=== PATIENT | male | born 1970 | race Two or more races ===

== ENCOUNTER 2017-06-12 03:03 | Emergency (ER) | payer OTHER ==
[2017-06-12] MEDS ORDERED: Aspirin Low Dose CHEW TAB* 81 MG PO ONE (03:04)
[2017-06-12] MEDS ORDERED: Aspirin EC TAB* 325 MG PO ONE (03:26)
[2017-06-12] MEDS ORDERED: Morphine INJ* 4 MG/ML 1 ML SYRINGE IV ONE (03:27)
[2017-06-12] MEDS ORDERED: Pantoprazole IV* 40 MG IV ONE (03:27)
[2017-06-12] MEDS ORDERED: LORazepam INJ* 2 MG/ML 1 ML VIAL IV PUSH ONE (03:27)
[2017-06-12 03:34] LABS: Hematocrit 45 % (42-52); Hemoglobin 14.1 g/dl (14.0-18.0); Mean Corpuscular HGB Conc 31 g/dl (31-36); Mean Corpuscular Hemoglobin 20 pg (27-31); Mean Platelet Volume 9 um3 (7.4-10.4); Red Blood Count 6.91 10^6/ul (4.0-5.4); Red Cell Distribution Width 16 % (10.5-15); White Blood Count 8.4 10^3/ul (3.5-10.8)
[2017-06-12 03:36] LABS: Comments Flag Yes
[2017-06-12 03:37] LABS: Mean Corpuscular Volume 65 fL (80-94)
[2017-06-12 03:40] LABS: Albumin 4.5 g/dL (3.2-5.2); BUN/Creatinine Ratio 10.1 (8-20); Calcium 9.6 mg/dL (8.6-10.3); EGFR African American 77.8 (>60); EGFR Non-African American 60.5 (>60); Globulin 3.3 g/dL (2-4); Potassium 3.4 mmol/L (3.5-5.0); Total Bilirubin 0.4 mg/dL (0.2-1.0); Total Protein 7.8 g/dL (6.4-8.9)
--- NOTE | 2017-06-12 04:47 | ED ---
Shankar Devries Alfonso, scribed for Miriam Shearer MD on 06/12/17 at 0334 . 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 He reports the pain radiates to his jaw. He denies pain radiation to his back. Pt rates the pain 7/10 in severity. Symptoms aggravated by deep breath and alleviated by nothing. Pt reports palpations, and SOB. Pt denies recent travels. PMHx of HTN and HLD. Tobacco abuse disorder. - History of Current Complaint Chief Complaint: EDChestPainROMI Time Seen by Provider: 06/12/17 03:04 Hx Obtained From: Patient Onset/Duration: Started Minutes Ago - 20, Still Present Timing: Constant Initial Severity: Moderate Current Severity: Moderate Pain Intensity: 7 Pain Scale Used: 0-10 Numeric Chest Pain Location: Left Anterior, Left Lateral Chest Pain Radiates: Yes Chest Pain Radiates To:: Jaw Character: Sharp/Stabbing Aggravating Factor(s): Deep Breaths Alleviating Factor(s): Nothing Associated Signs and Symptoms: Positive: Other: - Pt reports palpations, and SOB - Allergy/Home Medications Allergies/Adverse Reactions: Allergies Allergy/AdvReac Type Severity Reaction Status Date / Time No Known Allergies Allergy Verified 08/20/15 18:39 Home Medications: Home Medications Atorvastatin* [Lipitor*] 20 mg PO 1700 06/12/17 [History Confirmed 06/12/17] Diclofenac Sodium EC TAB* [Voltaren EC TAB*] 50 mg PO TID PRN 06/12/17 [History Confirmed 06/12/17] Isoniazid TAB* 300 mg PO DAILY 06/12/17 [History Confirmed 06/12/17] Lisinopril TAB* [Prinivil TAB*] 10 mg PO DAILY 06/12/17 [History Confirmed 06/12] Omeprazole CAP* [Prilosec CAP* 20 MG] 20 mg PO DAILY 06/12/17 [History Confirmed 06/12/17] buPROPion SR TAB* [Wellbutrin SR TAB*] 150 mg PO BID 06/12/17 [History Confirmed 06/12/17] PMH/Surg Hx/FS Hx/Imm Hx Cardiovascular History: Reports: Hx Hypercholesterolemia, Hx Hypertension Sensory History: Denies: Hx Deafness Opthamlomology History: Denies: Hx Legally Blind Infectious Disease History: No Infectious Disease History: Denies: Traveled Outside the [place] in Last 30 Days - Family History Known Family History: Negative: Cardiac Disease - Social History Lives: With Family Alcohol Use: None Substance Use Type: Reports: None Smoking Status (MU): Heavy Every Day Tobacco Smoker Review of Systems Positive: Palpitations, Chest Pain - sharp left-sided pain that radiates to his jaw. Positive: Shortness Of Breath All Other Systems Reviewed And Are Negative: Yes Physical Exam Triage Information Reviewed: Yes Vital Signs On Initial Exam: Initial Vitals Temp Pulse Resp BP Pulse Ox 98.4 F 88 22 155/94 100 06/12/17 03:10 06/12/17 03:10 06/12/17 03:10 06/12/17 03:10 06/12/17 03:10 Vital Signs Reviewed: Yes Appearance: Positive: Well-Appearing, Pain Distress - Mild Skin: Positive: Warm, Skin Color Reflects Adequate Perfusion, Dry Eyes: Positive: EOMI, WILLIE ENT: Positive: Pharynx normal, TMs normal Neck: Positive: Supple, Nontender Respiratory/Lung Sounds: Positive: Clear to Auscultation, Breath Sounds Present. Negative: Rales, Rhonchi, Wheezes Cardiovascular: Positive: RRR, Other - No gallop. Negative: Murmur, Rub Abdomen Description: Positive: Nontender, Soft, Other: - No rebound. Negative: Distended, Guarding Bowel Sounds: Positive: Present Musculoskeletal: Positive: Strength/ROM Intact, Other - No edema Neurological: Positive: Sensory/Motor Intact, Alert, Oriented to Person Place, Time, CN Intact II-III - 2-12 Psychiatric: Positive: Affect/Mood Appropriate - Jemma Coma Scale Coma Scale Total: 15 Diagnostics - Vital Signs Vital Signs Temp Pulse Resp BP Pulse Ox 06/12/17 03:10 98.4 F 88 22 155/94 100 - Laboratory Lab Results: Lab Results 06/12/17 06/12/17 06/12/17 Range/Units 03:16 03:16 03:16 WBC 8.4 (3.5-10.8) 10^3/ul RBC 6.91 H (4.0-5.4) 10^6/ul Hgb 14.1 (14.0-18.0) g/dl Hct 45 (42-52) % MCV 65 L (80-94) fL MCH 20 L (27-31) pg MCHC 31 (31-36) g/dl RDW 16 H (10.5-15) % Plt Count 216 (150-450) 10^3/ul MPV 9 (7.4-10.4) um3 Neut % (Auto) 63.1 (38-83) % Lymph % (Auto) 28.2 (25-47) % Galax % (Auto) 7.8 (1-9) % Eos % (Auto) 0.1 (0-6) % Baso % (Auto) 0.8 (0-2) % Absolute Neuts (auto) 5.3 (1.5-7.7) 10^3/ul Absolute Lymphs (auto) 2.4 (1.0-4.8) 10^3/ul Absolute Monos (auto) 0.7 (0-0.8) 10^3/ul Absolute Eos (auto) 0 (0-0.6) 10^3/ul Absolute Basos (auto) 0.1 (0-0.2) 10^3/ul Absolute Nucleated RBC 0.01 10^3/ul Nucleated RBC % 0.1 Sodium 134 (133-145) mmol/L Potassium 3.4 L (3.5-5.0) mmol/L Chloride 102 (101-111) mmol/L Carbon Dioxide 23 (22-32) mmol/L Anion Gap 9 (2-11) mmol/L BUN 13 (6-24) mg/dL Creatinine 1.29 H (0.67-1.17) mg/dL Est GFR ( Amer) 77.8 (>60) Est GFR (Non-Af Amer) 60.5 (>60) BUN/Creatinine Ratio 10.1 (8-20) Glucose 126 H (70-100) mg/dL Lactic Acid 2.0 (0.5-2.0) mmol/L Calcium 9.6 (8.6-10.3) mg/dL Total Bilirubin 0.40 (0.2-1.0) mg/dL AST 16 (13-39) U/L ALT 14 (7-52) U/L Alkaline Phosphatase 90 (34-104) U/L Troponin I 0.00 (<0.04) ng/mL Total Protein 7.8 (6.4-8.9) g/dL Albumin 4.5 (3.2-5.2) g/dL Globulin 3.3 (2-4) g/dL Albumin/Globulin Ratio 1.4 (1-3) Result Diagrams: 06/12/17 03:16 06/12/17 03:16 Lab Statement: Any lab studies that have been ordered have been reviewed, and results considered in the medical decision making process. - Radiology CXR Radiology Interpretation Completed By: Radiologist - NAD - EKG 0311 Cardiac Rate: NL - BPM 91 EKG Rhythm: Sinus Rhythm ST Segment: Normal Ectopy: : PVCs Re-Evaluation - Re-Evaluation First Eval Re-Evaluation Time: 04:39 Change: Improved Comment: Patient reports he is more comfortable. Chest Pain Course/Dx - Course Course Of Treatment: 46 yo male with onset of cp 20 mins before arrival pt with normal ekg and essentially normal labs plan is to get a 2nd trop at 6am and 9am so pt will be signed out to am md - Diagnoses Provider Diagnoses: Chest pain Discharge - Discharge Plan Condition: Stable Disposition: OTHER Discharge Disposition Comment: to be determined by am ED md The documentation as recorded by the Shankar rothman Alfonso accurately reflects the service I personally performed and the decisions made by me, Miriam Shearer MD.
--- NOTE | 2017-06-12 07:37 | RAD ---
INDICATION: Chest pain. COMPARISON: Correlation is made with a prior chest x-ray study from November 14, 2016. TECHNIQUE: A portable view of the chest was obtained. FINDINGS: Cardiac and mediastinal contours appear to be within normal limits. The lungs are clear. No pleural effusion is seen. IMPRESSION: NO EVIDENCE FOR ACUTE DISEASE.
[2017-06-12 09:45] VITALS: BP 128/80
--- NOTE | 2017-06-12 10:01 | ED ---
Luz Devries Edward, scribed for Carlos Joyner MD on 06/12/17 at 0702 . Progress - Progress Note Progress Note: Signed out by Dr. Shearer. EKG at 08:58 showed no significant changes from the previous EKG - no STEMI. Repeat Troponin at 09:00 was negative. Patient will be discharged home with f/u with Dr. Purvis for a cardiac workup. Re-Evaluation - Re-Evaluation First Eval Re-Evaluation Time: 04:39 Change: Improved Comment: Patient reports he is more comfortable. Course/Dx - Course Course Of Treatment: 46 yo male with onset of cp 20 mins before arrival pt with normal ekg and essentially normal labs plan is to get a 2nd trop at 6am and 9am so pt will be signed out to am md - Diagnoses Provider Diagnoses: Chest pain The documentation as recorded by the najmaibLuz tian Edward accurately reflects the service I personally performed and the decisions made by me, Carlos Joyner MD.
== END 2017-06-12 09:47 ==
LOC: ED 03:03
DX: R07.9 Chest pain, unspecified (principal)
CPT/HCPCS: 36415; 71010; 80053; 83605; 84484; 85025; 93005; 99285; A9270-GY; J2060; J2270

== ENCOUNTER 2018-04-08 21:39 | Emergency (ER) | payer SELFPAY ==
--- NOTE | 2018-04-08 22:25 | ED ---
Rashmi Devries Elizabeth, scribed for Khurram Dudley MD on 04/08/18 at 2223 . Complex/Multi-Sys Presentation - HPI Summary HPI Summary: This patient is a 47 year old M presenting to [facility] with a chief complaint of a possible tick on the left abdomen since this evening. Prior to evaluation by the ED physician, the possible tick was discovered to be an ingrown hair. The patient reports that he saw a tick fall off of him earlier today when he was in the shower. The patient denies any other symptoms. - History Of Current Complaint Chief Complaint: EDRashSkinAbscess Time Seen by Provider: 04/08/18 21:57 Hx Obtained From: Patient Onset/Duration: Lasting Hours, Resolved Timing: Constant Severity Currently: None Severity Initially: Mild Associated Signs And Symptoms: Negative: Chest Pain, Nausea, Vomiting - Allergies/Home Medications Allergies/Adverse Reactions: Allergies Allergy/AdvReac Type Severity Reaction Status Date / Time No Known Allergies Allergy Verified 08/20/15 18:39 PMH/Surg Hx/FS Hx/Imm Hx Endocrine/Hematology History: Denies: Hx Diabetes Cardiovascular History: Reports: Hx Angina, Hx Hypercholesterolemia, Hx Hypertension Denies: Hx Coronary Artery Disease, Hx Myocardial Infarction, Hx Valvular Heart Disease Respiratory History: Denies: Hx Asthma, Hx Chronic Obstructive Pulmonary Disease (COPD) Sensory History: Denies: Hx Legally Blind, Hx Deafness Opthamlomology History: Denies: Hx Legally Blind Infectious Disease History: No Infectious Disease History: Denies: Traveled Outside the [place] in Last 30 Days - Family History Known Family History: Negative: Cardiac Disease - Social History Alcohol Use: None Substance Use Type: Reports: None Smoking Status (MU): Heavy Every Day Tobacco Smoker Type: Cigarettes, eCigarettes Have You Smoked in the Last Year: Yes Review of Systems Negative: Epistaxis Negative: Chest Pain Negative: Abdominal Pain Negative: Headache All Other Systems Reviewed And Are Negative: Yes Physical Exam - Summary Physical Exam Summary: VITAL SIGNS: Reviewed. GENERAL: ~Patient is a well-developed and nourished male who is lying comfortable in the stretcher. Patient is not in any acute respiratory distress. HEAD AND FACE: No signs of trauma. No ecchymosis, hematomas or skull depressions. No sinus tenderness. EYES: PERRLA, EOMI x 2, No injected conjunctiva, no nystagmus. EARS: Hearing grossly intact. Ear canals and tympanic membranes are within normal limits. MOUTH: Oropharynx within normal limits. NECK: Supple, trachea is midline, no adenopathy, no JVD, no carotid bruit, no c- spine tenderness, neck with full ROM. CHEST: Symmetric, no tenderness at palpation LUNGS: Clear to auscultation bilaterally. No wheezing or crackles. CVS: Regular rate and rhythm, S1 and S2 present, no murmurs or gallops appreciated. ABDOMEN: Soft, non-tender. No signs of distention. No rebound no guarding, and no masses palpated. Bowel sounds are normal. EXTREMITIES: FROM in all major joints, no edema, no cyanosis or clubbing. NEURO: Alert and oriented x 3. No acute neurological deficits. Speech is normal and follows commands. SKIN: Dry and warm Triage Information Reviewed: Yes Vital Signs On Initial Exam: Initial Vitals Temp Pulse Resp BP Pulse Ox 98.5 F 86 18 145/89 98 04/08/18 21:52 04/08/18 21:52 04/08/18 21:52 04/08/18 21:52 04/08/18 21:52 Vital Signs Reviewed: Yes Diagnostics - Vital Signs Vital Signs Temp Pulse Resp BP Pulse Ox 04/08/18 21:52 98.5 F 86 18 145/89 98 - Laboratory Lab Statement: Any lab studies that have been ordered have been reviewed, and results considered in the medical decision making process. Complex Multi-Symp Course/Dx Course Of Treatment: The possible tick was discovered to be an ingrown hair. Patient will be discharged home and is advised to return to the emergency department with any new or worsening symptoms. The patient is agreeable with this plan. - Diagnoses Provider Diagnoses: Insect bite Discharge - Sign-Out/Discharge Documenting (check all that apply): Discharge/Admit/Transfer - Discharge Plan Condition: Stable Disposition: HOME Patient Education Materials: Insect Bite or Sting (ED) Referrals: Rosette Purvis MD [Primary Care Provider] - Additional Instructions: Return to the emergency department with any new or worsening symptoms. The documentation as recorded by the Rashmi rothman Elizabeth accurately reflects the service I personally performed and the decisions made by , Khurram Dudley MD.
[2018-04-08 22:30] VITALS: BP 112/76
== END 2018-04-08 22:29 | disposition home or self-care (01) ==
LOC: ED 21:39
DX: T14.8XXA Other injury of unspecified body region, initial encounter (principal); W57.XXXA Bitten or stung by nonvenomous insect and other nonvenomous arthropods, initial encounter; Y92.9 Unspecified place or not applicable; L73.1 Pseudofolliculitis barbae; F17.210 Nicotine dependence, cigarettes, uncomplicated; F17.290 Nicotine dependence, other tobacco product, uncomplicated
CPT/HCPCS: 99282

== ENCOUNTER 2018-11-17 17:07 | Emergency (ER) | payer OTHER ==
--- NOTE | 2018-11-17 17:23 | ED ---
HPI Chest Pain - HPI Summary HPI Summary: A 48 y/o male, accompanied by his girlfriend and daughter, presents to [facility] with a chief complaint of chest pain since 16:15 11/17/18. He also c/o chills and headache. At triage he rated his pain as 3/10. He denies fever, SOB, abdominal pain or N/V. He denies a SHx. He has a Hx of HTN and HLD. He notes that he did not take his BP medications this morning and took Viagra at around 16:45. He also reports smoking marijuana. Pt states he is very anxious, and this feels like a panic attack. States he had a similar episode in the past, and it was not a heart attack. - History of Current Complaint Chief Complaint: EDHypertension Hx Obtained From: Patient, Family/Health Care / Medical Job Titles - girlfriend and daughter Onset/Duration: Started Hours Ago - 1 hour, Atraumatic, Still Present Time of Onset: 16:15 Timing: Constant, Lasting Hours Initial Severity: Mild Current Severity: Mild Pain Intensity: 3 Pain Scale Used: 0-10 Numeric Chest Pain Location: Diffuse Chest Pain Radiates: No Character: Tightness Aggravating Factor(s): Nothing Alleviating Factor(s): Nothing Associated Signs and Symptoms: Positive: Headaches, Dizziness. Negative: Shortness of Breath, Nausea, Abdominal Pain, Vomiting - Allergy/Home Medications Allergies/Adverse Reactions: Allergies Allergy/AdvReac Type Severity Reaction Status Date / Time No Known Allergies Allergy Verified 08/20/15 18:39 PMH/Surg Hx/FS Hx/Imm Hx Previously Healthy: No Endocrine/Hematology History: Denies: Hx Diabetes Cardiovascular History: Reports: Hx Angina, Hx Hypercholesterolemia, Hx Hypertension Denies: Hx Coronary Artery Disease, Hx Myocardial Infarction, Hx Valvular Heart Disease Respiratory History: Denies: Hx Asthma, Hx Chronic Obstructive Pulmonary Disease (COPD) Sensory History: Denies: Hx Legally Blind, Hx Deafness Opthamlomology History: Denies: Hx Legally Blind - Surgical History Surgery Procedure, Year, and Place: none Infectious Disease History: No Infectious Disease History: Denies: Traveled Outside the [place] in Last 30 Days - Family History Known Family History: Negative: Cardiac Disease - Social History Lives: With Family Alcohol Use: None Substance Use Type: Reports: Marijuana Smoking Status (MU): Heavy Every Day Tobacco Smoker Type: Cigarettes, eCigarettes Have You Smoked in the Last Year: Yes Review of Systems Positive: Chills Positive: Chest Pain Negative: Shortness Of Breath Negative: Abdominal Pain, Vomiting, Nausea Positive: no symptoms reported Musculoskeletal: Negative Skin: Negative Positive: Headache Positive: Anxious All Other Systems Reviewed And Are Negative: Yes Physical Exam - Summary Physical Exam Summary: Appearance: Well-appearing, moderate pain distress, well-nourished Skin: Warm, color reflects adequate perfusion, dry Head: Normal Head/Face inspection, atraumatic Eyes: Conjunctiva clear ENT: Normal inspection Neck: Supple, no nodes, no JVD Respiratory: Lungs clear, normal breath sounds, no respiratory distress Cardio: RRR, No murmur, pulses normal, brisk capillary refill Abdomen: Soft, nontender Bowel sounds: Present Musculoskeletal: Strength Intact/ROM intact, no calf tenderness, no edema. Psychological: Anxious, is able to be re-directed Neuro: Alert, muscle tone normal, no focal deficit Triage Information Reviewed: Yes Vital Signs On Initial Exam: Initial Vitals Temp Pulse Resp BP Pulse Ox 98.1 F 124 20 170/88 100 11/17/18 17:09 11/17/18 17:09 11/17/18 17:09 11/17/18 17:09 11/17/18 17:09 Vital Signs Reviewed: Yes Diagnostics - Vital Signs Vital Signs Temp Pulse Resp BP Pulse Ox 11/17/18 17:09 98.1 F 124 20 170/88 100 - Laboratory Result Diagrams: 11/17/18 18:51 11/17/18 18:51 Lab Statement: Any lab studies that have been ordered have been reviewed, and results considered in the medical decision making process. - Radiology CXR Radiology Interpretation Completed By: Radiologist Summary of Radiographic Findings: No active disease is noted. ED provider has reviewed this imaging report. - EKG 17:15 Cardiac Rate: Tachycardia - 114 bpm EKG Rhythm: Sinus Tachycardia ST Segment: Non-Specific Ectopy: None EKG Comparison: No Significant Change - c/w 06/12/17 Summary of EKG Findings: Sinus tachycardia at 114 bpm with nl AVIVCT, nl QTc, no acute changes and no change compared with previous. Re-Evaluation - Re-Evaluation First Eval Re-Evaluation Time: 20:13 Change: Improved Comment: Pt told Cassidy Pickard RN that he felt better, did not wait further evaluation, just wanted to go home. Did not want to see provider again. Denied chest pain, SOB. Pt not seen by myself again after initial encounter. Chest Pain Course/Dx - Course Course Of Treatment: A 48 y/o male, with hx HTN, HLD accompanied by his girlfriend and daughter, presents to [facility] with a chief complaint of chest pain since 16:15 11/17/18. Pt admits he is very anxious. Also advised staff that he had taken viagra one hour prior, and smoked marijuana. Pt has leukocytosis. Pt left AMA prior to further evaluation and questioning regarding this. EKG at 17: 15 showed sinus tachycardia at 114 bpm with nl AVIVCT, nl QTc, no acute changes and no change. CXR impression: No active disease is noted. Initial troponin negative. At 20:13 the patient spoke to the nurse and stated he felt better and decided to leave. He did not want to wait for provider re-eval and left AMA. Dx: AMA, HTN in poor control, chest pain. - Chest Pain Differential Diagnosis/HQI/PQRI: Acute MN, ACS, Angina, Chest Wall, GI Disease, Lower Respiratory Infection, Pulmonary Embolism - Diagnoses Provider Diagnoses: Left against medical advice, Chest pain, Hypertension, poor control, Leukocytosis Discharge - Sign-Out/Discharge Documenting (check all that apply): Patient Departure - AMA - Discharge Plan Condition: Improved Disposition: AGAINST MEDICAL ADVICE Referrals: Rosette Purvis MD [Primary Care Provider] - - Billing Disposition and Condition Condition: IMPROVED Disposition: Against Medical Advice - Attestation Statements Document Initiated by Lauren: Yes Documenting Scribe: Farhat Hay Provider For Whom Lauren is Documenting (Include Credential): Dr. Anne Beard MD Scribe Attestation: I, froylan Felix for Dr. Anne Beard MD on 11/18/18 at 0021. Scribe Documentation Reviewed: Yes Provider Attestation: The documentation as recorded by the Farhat rothman accurately reflects the service I personally performed and the decisions made by me, Dr. Anne Beard MD Status of Scribe Document: Viewed
[2018-11-17] MEDS ORDERED: Aspirin 81 mg CHEW TAB* 81 MG TAB.CHEW PO ONE (17:24)
[2018-11-17 19:14] LABS: ABS Basophils 0.1 10^3/ul (0-0.2); ABS Eosinophils 0 10^3/ul (0-0.6); ABS Monocytes 0.9 10^3/ul (0-0.8); ABS Nucleated RBC 0 10^3/ul; Eosinophil % 0 %; Hematocrit 46 % (42-52); Hemoglobin 14.2 g/dl (14.0-18.0); Lymphocyte % 11.1 %; Mean Corpuscular HGB Conc 31 g/dl (31-36); Mean Corpuscular Hemoglobin 20 pg (27-31); Mean Corpuscular Volume 65 fL (80-94); Mean Platelet Volume 8.7 fL (7.4-10.4); Nucleated Red Blood Cells % 0; Platelet Count 240 10^3/ul (150-450); Red Blood Count 6.99 10^6/ul (4.00-5.40); Red Cell Distribution Width 16 % (10.5-15)
[2018-11-17 19:16] LABS: Activated Partial Thrombo Time 31.7 seconds (26.0-36.3); INR 0.98 (0.77-1.02)
[2018-11-17 19:24] LABS: Albumin 4.7 g/dL (3.2-5.2); Albumin/Globulin Ratio 1.2 (1-3); Calcium 10.1 mg/dL (8.6-10.3); EGFR Non-African American 80.4 (>60); Globulin 3.8 g/dL (2-4); Potassium 4.3 mmol/L (3.5-5.0); Total Bilirubin 0.4 mg/dL (0.2-1.0); Total Protein 8.5 g/dL (6.4-8.9)
[2018-11-17 20:04] LABS: TSH (Thyroid Stimulating Horm) 1.02 mcIU/mL (0.34-5.60)
[2018-11-17 20:11] VITALS: BP 114/77
[2018-11-18 13:15] LABS: C Reactive Protein 7.17 mg/L (<8.01)
== END 2018-11-17 20:13 | disposition left against medical advice (07) ==
LOC: ED 17:07
DX: R07.89 Other chest pain (principal); I10 Essential (primary) hypertension; D72.829 Elevated white blood cell count, unspecified; F17.210 Nicotine dependence, cigarettes, uncomplicated
CPT/HCPCS: 36415; 71045; 80053; 82550; 82553; 83605; 83735; 83880; 84436; 84443; 84484; 85025; 85379; 85610; 85730; 86140; 93005; 99282

== ENCOUNTER 2019-08-21 14:36 | Emergency (ER) | payer OTHER ==
[2019-08-21] MEDS ORDERED: NS 0.9% 1000 ML** 1,000 ML IV ONE (14:50)
--- OUTSIDE RECORDS SUMMARY | 2019-08-21 16:03 | XMS REPORT | Continuity of Care Document ---
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 [phone] Problems Description No Information Available Social History Type Date Description Comments Sex Unknown ETOH Use Occasionally consumes alcohol Tobacco Use Start: Unknown Heavy tobacco smoker (more than 10 cigarettes/day) Smoking Status Reviewed: 06/29/19 Heavy tobacco smoker (more than 10 cigarettes/day) Allergies, Adverse Reactions, Alerts Description No Known Drug Allergies Medications Active Medications SIG Qnty Indications Ordering Provider Date Latanoprost 1 drops both 7.5ml Lester Mittal, OD 06/20/2019 0.005% Solution eyes every night Lisinopril Unknown 10mg Tablets Atorvastatin Calcium Unknown 20mg Tablets Diclofenac Potassium Unknown 50mg Tablets Immunizations Description No Information Available Vital Signs Date Vital Result Comment 12/22/2018 1:51pm Intraocular Pressure Right Eye 21 mmHg Intraocular Pressure Left Eye 21 mmHg Cornea Thickness Left Eye 539 m Cornea Thickness Right Eye 531 m Pachymetry adjusted IOP Right Eye 0 Pachymetry adjusted IOP Left Eye +1 07/30/2018 11:23am Intraocular Pressure Right Eye 21 mmHg Intraocular Pressure Left Eye 21 mmHg Results Description No Information Available Procedures Description No Information Available Medical Devices Description No Information Available Encounters Description No Information Available Assessments Date Code Description Provider 06/29/2019 H40.1131 Primary open-angle glaucoma, bilateral, mild Lester Mittal, JOHANNY stage Plan of Treatment 06/29/2019 - Lester Mittal ODH40.1131 Primary open-angle glaucoma, bilateral, mild stageFollow up:6 weeks IOP Functional Status Description No Information Available Mental Status Description No Information Available Referrals Description No Information Available
--- OUTSIDE RECORDS SUMMARY | 2019-08-21 16:03 | XMS REPORT | Continuity of Care Document ---
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 Problems Description No Information Available Social History Type Date Description Comments Sex Unknown ETOH Use Occasionally consumes alcohol Tobacco Use Start: Unknown Heavy tobacco smoker (more than 10 cigarettes/day) Smoking Status Reviewed: 08/09/19 Heavy tobacco smoker (more than 10 cigarettes/day) [...] Available Vital Signs Date Vital Result Comment 06/29/2019 2:50pm Intraocular Pressure Right Eye 22 mmHg Intraocular Pressure Left Eye 21 mmHg 12/22/2018 1:51pm Intraocular Pressure Right Eye 21 mmHg Intraocular Pressure Left Eye 21 mmHg Cornea Thickness Left Eye 539 m Cornea Thickness Right Eye 531 m Pachymetry adjusted IOP Right Eye 0 Pachymetry adjusted IOP Left Eye +1 Results Description No Information Available Procedures Date Code Description Status 08/10/2019 66805 Eye Exam Est Intermediate Completed 06/29/2019 02426 Eye Exam Est Intermediate Completed Medical Devices Description No Information Available Encounters Description No Information Available Assessments Date Code Description Provider 08/10/2019 H40.1131 Primary open-angle glaucoma, bilateral, mild Lester Mittal, OD stage 06/29/2019 H40.1131 Primary open-angle glaucoma, bilateral, mild Lester Mittal, JOHANNY stage Plan of Treatment Future Appointment(s):09/21/2019 1:30 pm - Lester Mittal OD at [id number] - Lester Mittal ODH40.1131 Primary open-angle glaucoma, bilateral, mild stageFollow up:6-8 weeks full, sooner PRN Functional Status Description No Information Available Mental Status Description No Information Available Referrals Description No Information Available
[2019-08-21 16:24] LABS: ABS Lymphocytes 2.8 10^3/ul (1.0-4.8); ABS Monocytes 0.7 10^3/ul (0-0.8); ABS Neutrophils 6.5 10^3/ul (1.5-7.7); Eosinophil % 0.1 %; Hematocrit 46 % (42-52); Hemoglobin 14.7 g/dL (14.0-18.0); Lymphocyte % 27.6 %; Mean Corpuscular HGB Conc 32 g/dL (31-36); Mean Corpuscular Hemoglobin 21 pg (27-31); Mean Corpuscular Volume 66 fL (80-94); Mean Platelet Volume 8.3 fL (7.4-10.4); Platelet Count 258 10^3/uL (150-450); Red Blood Count 6.97 10^6 /uL (4.18-5.48); Red Cell Distribution Width 15 % (10-15); White Blood Count 10.1 10^3/uL (3.5-10.8)
[2019-08-21 16:40] LABS: Albumin 4.6 g/dL (3.2-5.2); Albumin/Globulin Ratio 1.3 (1-3); BUN/Creatinine Ratio 14.4 (8-20); C Reactive Protein 16.9 mg/L (<8.01); Calcium 9.8 mg/dL (8.6-10.3); EGFR African American 100.4 (>60); Globulin 3.6 g/dL (2-4); Potassium 4.3 mmol/L (3.5-5.0); Total Bilirubin 0.5 mg/dL (0.2-1.0); Total Protein 8.2 g/dL (6.4-8.9)
--- NOTE | 2019-08-21 17:46 | ED ---
GI/ HPI - HPI Summary HPI Summary: The patient is a 49 y/o M presenting to [facility] with a chief complaint of melenic stools for the last three days with diffuse abdominal pain. He reports that he takes ASA and has hx of stomach ulcers about 15-20 years ago without symptoms since. Currently, the dull pain is rated 5/10 in severity. He denies any dizziness. PMHx: early onset DM, angina, HLD, HTN. Heavy every day smoker, no EtOH, marijuana use. Medications reviewed. Allergies noted. - History of Current Complaint Chief Complaint: EDGIBleed Time Seen by Provider: 08/21/19 17:26 Stated Complaint: BOWEL ISSUES PER PT Hx Obtained From: Patient Onset/Duration: Started Days Ago - three, Still Present Timing: Lasting Days Severity: Mild Current Severity: Moderate Pain Intensity: 5 Location of Pain: Diffuse - abdominal Pain Characteristics: Dull Associated Signs and Symptoms: Positive: Black Tarry Stool, Abdominal Pain - diffuse. Negative: Dizziness Aggravating Factor(s): Nothing Alleviating Factor(s): Nothing - Allergy/Home Medications Allergies/Adverse Reactions: Allergies Allergy/AdvReac Type Severity Reaction Status Date / Time No Known Allergies Allergy Verified 08/21/19 14:41 Home Medications: Home Medications Losartan Potassium [Cozaar] 50 mg PO DAILY 08/21/19 [History Confirmed 08/21/19] Propranolol TAB* [Inderal TAB*] 10 mg PO DAILY 08/21/19 [History Confirmed 08/21] PMH/Surg Hx/FS Hx/Imm Hx Endocrine/Hematology History: Reports: Hx Diabetes - early onset Cardiovascular History: Reports: Hx Angina, Hx Hypercholesterolemia, Hx Hypertension Denies: Hx Coronary Artery Disease, Hx Myocardial Infarction, Hx Valvular Heart Disease Respiratory History: Denies: Hx Asthma, Hx Chronic Obstructive Pulmonary Disease (COPD) Sensory History: Denies: Hx Legally Blind, Hx Deafness Opthamlomology History: Denies: Hx Legally Blind - Surgical History Surgical History: None Surgery Procedure, Year, and Place: none Infectious Disease History: No Infectious Disease History: Denies: Traveled Outside the [place] in Last 30 Days - Family History Known Family History: Positive: Hypertension, Diabetes Negative: Cardiac Disease - Social History Alcohol Use: None Hx Substance Use: Yes Substance Use Type: Reports: Marijuana Hx Tobacco Use: Yes Smoking Status (MU): Heavy Every Day Tobacco Smoker Type: Cigarettes, eCigarettes Have You Smoked in the Last Year: Yes Review of Systems Positive: Abdominal Pain - diffuse, dull, Other - melenic stool Neurological: Other - Negative: dizziness All Other Systems Reviewed And Are Negative: Yes Physical Exam - Summary Physical Exam Summary: VITAL SIGNS: Reviewed. GENERAL: Patient is a well-developed and nourished male who is lying comfortable in the stretcher. Patient is not in any acute respiratory distress. HEAD AND FACE: No signs of trauma. No ecchymosis, hematomas or skull depressions. No sinus tenderness. EYES: PERRLA, EOMI x 2, No injected conjunctiva, no nystagmus. EARS: Hearing grossly intact. Ear canals and tympanic membranes are within normal limits. MOUTH: Oropharynx within normal limits. NECK: Supple, trachea is midline, no adenopathy, no JVD, no carotid bruit, no c- spine tenderness, neck with full ROM. CHEST: Symmetric, no tenderness at palpation. LUNGS: Clear to auscultation bilaterally. No wheezing or crackles. CVS: Regular rate and rhythm, S1 and S2 present, no murmurs or gallops appreciated. ABDOMEN: Soft, non-tender. No signs of distention. No rebound, no guarding, and no masses palpated. Bowel sounds are normal. EXTREMITIES: FROM in all major joints, no edema, no cyanosis or clubbing. NEURO: Alert and oriented x 3. No acute neurological deficits. Speech is normal and follows commands. SKIN: Dry and warm. RECTAL: No stool in the vault of the rectum, Normal sphincter time, No melena, No gross blood seen. Triage Information Reviewed: Yes Vital Signs On Initial Exam: Initial Vitals Temp Pulse Resp BP Pulse Ox 97.3 F 97 16 147/94 100 08/21/19 14:37 08/21/19 14:37 08/21/19 14:37 08/21/19 14:37 08/21/19 14:37 Vital Signs Reviewed: Yes Procedures - Sedation Patient Received Moderate/Deep Sedation with Procedure: No Diagnostics - Vital Signs Vital Signs Temp Pulse Resp BP Pulse Ox 08/21/19 14:37 97.3 F 97 16 147/94 100 - Laboratory Lab Results: Lab Results 08/21/19 08/21/19 08/21/19 Range/Units 16:13 16:13 16:13 WBC 10.1 (3.5-10.8) 10^3/uL RBC 6.97 H (4.18-5.48) 10^6 /uL Hgb 14.7 (14.0-18.0) g/dL Hct 46 (42-52) % MCV 66 L (80-94) fL MCH 21 L (27-31) pg MCHC 32 (31-36) g/dL RDW 15 (10-15) % Plt Count 258 (150-450) 10^3/uL MPV 8.3 (7.4-10.4) fL Neut % (Auto) 64.7 % Lymph % (Auto) 27.6 % [place] % (Auto) 7.1 % Eos % (Auto) 0.1 % Baso % (Auto) 0.5 % Absolute Neuts (auto) 6.5 (1.5-7.7) 10^3/ul Absolute Lymphs (auto) 2.8 (1.0-4.8) 10^3/ul Absolute Monos (auto) 0.7 (0-0.8) 10^3/ul Absolute Eos (auto) 0.0 (0-0.6) 10^3/ul Absolute Basos (auto) 0.0 (0-0.2) 10^3/ul Absolute Nucleated RBC 0.0 10^3/ul Nucleated RBC % 0.0 Sodium 135 (135-145) mmol/L Potassium 4.3 (3.5-5.0) mmol/L Chloride 102 (101-111) mmol/L Carbon Dioxide 27 (22-32) mmol/L Anion Gap 6 (2-11) mmol/L BUN 14 (6-24) mg/dL Creatinine 0.97 (0.67-1.17) mg/dL Est GFR ( Amer) 100.4 (>60) Est GFR (Non-Af Amer) 83.0 (>60) BUN/Creatinine Ratio 14.4 (8-20) Glucose 113 H (70-100) mg/dL Calcium 9.8 (8.6-10.3) mg/dL Total Bilirubin 0.50 (0.2-1.0) mg/dL AST 18 (13-39) U/L ALT 12 (7-52) U/L Alkaline Phosphatase 102 (34-104) U/L C-Reactive Protein 16.90 H (<8.01) mg/L Total Protein 8.2 (6.4-8.9) g/dL Albumin 4.6 (3.2-5.2) g/dL Globulin 3.6 (2-4) g/dL Albumin/Globulin Ratio 1.3 (1-3) Lipase 24 (11.0-82.0) U/L Blood Type O Positive Antibody Screen Negative Result Diagrams: 08/21/19 16:13 08/21/19 16:13 Lab Statement: Any lab studies that have been ordered have been reviewed, and results considered in the medical decision making process. Re-Evaluation - Re-Evaluation First Eval Re-Evaluation Time: 18:40 Change: Unchanged Comment: We discussed all results and plan for discharge. GIGU Course/Dx - Course Assessment/Plan: Patient is a 49 y/o M who has hx of stomach ulcers with chief complaint of dark melenic stools over the last three days with diffuse abdominal pain. Takes ASA and Omeprazole. Blood work without any significant abnormality, the hemoglobin is 14.7 and hematocrit is 46, BUN is 14, creatinine is 0.97, glucose is 113, and CRP is 16.9. Occult blood is positive. I discussed my physical exam and findings with Dr. Gonzalez from GI, and she recommends for the patient to increase his Omeprazole 20 mg once a day to twice a day. She also advises to give a referral to see the patient sometimes this week between Thursday and Thursday (1-2 days). The patient is hemodynamically stable. We discussed the findings and the plan with the patient, and he understands and agrees. He was given instructions if he starts to have increased some black stools, dizziness, palpitations, or any other symptoms he should return him immediately to the emergency department for further workup and management. I discussed all the findings and test results with the patient. Patient was instructed to return to the emergency room immediately if any of the symptoms return worsens. Plan of care was discussed with the patient and understands and agrees. All questions were answered at patient satisfaction. There were no further complaints or concerns. Lung exam before discharge: CTA B/L. Good air exchange. No wheezing or crackles heard. CVS: S1 and S2 present. No murmurs appreciated. Patient is alert and oriented x 3. Patient is hemodynamically stable. Patient will be discharged home with follow up PCP in the next 2-3 days. - Diagnoses Provider Diagnoses: Melena, PUD (peptic ulcer disease) - Physician Notifications Discussed Care Of Patient With: Stephanie Gonzalez - gastroenterology Time Discussed With Above Provider: 18:30 Instructed by Provider To: Other - I discussed the patient's case with Dr. Dash Ahuja, and she recommends that the patient take 20mg Omeprazole BID and to call the GI office in the next two days. Discharge ED - Sign-Out/Discharge Documenting (check all that apply): Patient Departure - Patient will be discharged home. - Discharge Plan Condition: Stable Disposition: HOME Patient Education Materials: Gastrointestinal Bleeding (ED) Forms: *Work Release Referrals: Stephanie Gonzalez MD [Medical Doctor] - 2 Days Rosette Purvis MD [Primary Care Provider] - Additional Instructions: Please take Omeprazole 20mg twice a day. Follow up with Dr. Gonzalez from gastroenterology in 1-2 days. Return to the emergency department for any new or worsening symptoms including increased bleeding, change in bowel movements, dizziness, or palpitations. - Billing Disposition and Condition Condition: STABLE Disposition: Home - Attestation Statements Document Initiated by Lauren: Yes Documenting Scribe: Ledy Syed Provider For Whom Lauren is Documenting (Include Credential): Dr. Brodie Arevalo MD Scribe Attestation: Ledy Devries scribed for Dr. Brodie Arevalo MD on 08/21/19 at 1901. Scribe Documentation Reviewed: Yes Provider Attestation: The documentation as recorded by the Ledy rothman accurately reflects the service I personally performed and the decisions made by me, Dr. Brodie Arevalo MD Status of Scribe Document: Viewed
[2019-08-21] MEDS ORDERED: Pantoprazole TAB * 40 MG TAB PO ONE (18:28)
[2019-08-21 18:48] VITALS: BP 127/81
== END 2019-08-21 18:48 | disposition home or self-care (01) ==
LOC: ED 14:36
DX: K92.1 Melena (principal); K27.9 Peptic ulcer, site unspecified, unspecified as acute or chronic, without hemorrhage or perforation; E11.9 Type 2 diabetes mellitus without complications; I10 Essential (primary) hypertension; Z79.82 Long term (current) use of aspirin; F17.210 Nicotine dependence, cigarettes, uncomplicated
CPT/HCPCS: 36415; 80053; 82270; 83690; 85025; 86140; 86850; 86900; 86901; 96360; 99282; A9270-GY

== ENCOUNTER 2019-09-15 21:51 | Emergency (ER) | payer OTHER ==
--- OUTSIDE RECORDS SUMMARY | 2019-09-15 22:13 | XMS REPORT | Continuity of Care Document ---
:1970 External Reference #:[id number] Author Name Stephanie Gonzalez MD Address [address] [place] [id number] Care Team Providers Name Role Phone Rosette Purvis MD Care Team Information Primary Operator [phone] Problems Description No Information Available Social History Type Date Description Comments Sex Unknown Tobacco Use Start: Unknown Heavy tobacco smoker (more than 10 cigarettes/day) Smoking Status Reviewed: 08/23/19 Heavy tobacco smoker (more than 10 cigarettes/day) Allergies, Adverse Reactions, Alerts Description No Known Drug Allergies Medications Active Medications SIG Qnty Indications Ordering Provider Date Omeprazole Slim Bo 20mg Tablets DR martinez,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 Latanoprost Unknown 0.005% Solution Atorvastatin Calcium Take One Tablet Unknown 20mg By Mouth Every Tablets Day Losartan Potassium Take One Tablet Unknown 50mg By Mouth Every Tablets Day Diclofenac Sodium Take One Tablet Unknown 50mg By Mouth Twice A Tablets DR Day as Needed Propranolol HCL Take One Tablet Unknown 10mg By Mouth Three Tablets Times A Day Aspirin 81 1 by mouth every Unknown 81mg Tablets DR day Cialis 1 by mouth every Unknown 5mg Tablets day Immunizations Description No Information Available Vital Signs Date Vital Result Comment 08/23/2019 2:24pm Height 68 inches 5'8" Weight 158.00 lb BP Systolic 134 mmHg BP Diastolic 81 mmHg Heart Rate 82 /min BMI (Body Mass Index) 24.0 kg/m2 Results Test Date Facility Test Result H/L Range Note Stool Occult 2019 [facility] Occult Blood <pending> Blood 1-3 Screen Stool Procedures Description No Information Available Medical Devices Description No Information Available Encounters Description No Information Available Assessments Date Code Description Provider 08/23/2019 R10.13 Epigastric pain Stephanie Gonzalez MD 08/23/2019 K92.1 Melena Stephanie Gonzalez MD 08/23/2019 Z87.11 Personal history of peptic ulcer disease Stephanie Ahuja MD Plan of Treatment Future Appointment(s):08/26/2019 12:00 pm - Stephanie Gonzalez MD at [facility]08/23/2019 - Stephanie Gonzalez, MDR10.13 Epigastric painK92.1 PpqlbjO51.11 Personal history of peptic ulcer disease Functional Status Description No Information Available Mental Status Description No Information Available Referrals Description No Information Available
--- OUTSIDE RECORDS SUMMARY | 2019-09-15 22:13 | XMS REPORT | Continuity of Care Document ---
:1970 External Reference #:[id number] Author Name Stephanie Gonzalez MD Address [address] [place] [address] [place] [address] Care Team Providers Name Role Phone Rosette Purvis MD Care Team Information Student Development Coordinator [phone] Problems Description No Information Available Social History Type Date Description Comments Sex Unknown Tobacco Use Start: Unknown Heavy tobacco smoker (more than 10 cigarettes/day) Smoking Status Reviewed: 08/23/19 Heavy tobacco smoker (more than 10 cigarettes/day) Allergies, Adverse Reactions, Alerts Description No Known Drug Allergies Medications Active Medications SIG Qnty Indications Ordering Provider Date Omeprazole Slim Bo 20mg Tablets DR martinez,PINMAKER Latanoprost Unknown 0.005% Solution Atorvastatin Calcium Take [...] Date Facility Test Result H/L Range Note Laboratory test 08/26/2019 [facility] Surgical SEE RESULT 1 finding Pathology Order BELOW Laboratory test 08/26/2019 [facility] Clotest SEE RESULT 2 finding BELOW Stool Occult 2019 [facility] Occult Blood <pending> Blood 1-3 Screen Stool 1 SEE RESULT BELOW Name: LOLA HORN : [address]: Stephanie Gonzalez MD Acct: [id number] Unit: [id number] AGE: 49 Location: ENDO Re08/26/19 SEX: M Status: DEP REF SPEC: [id number] SHELLY: 08/26/19 DR: Stephanie Ahuja MD REQ: [id number] RECD: 08/26/19 STATUS: MELINDA HAYES DR: Rosette Purvis MD _ ORDERED: LEVEL 4/2 FINAL DIAGNOSIS 1. Small bowel, duodenum, biopsies: -- Multiple fragments of partially denuded small bowel mucosa with normal villous architecture and focally prominent Camilo's glands. -- No villous blunting or increase in lamina propria lymphoplasmacytic infiltrate identified. 2. Gastroesophageal junction, biopsy: -- Gastroesophageal transition zone mucosa with no specific pathologic abnormality. -- No specific features of reflux esophagitis identified. -- No goblet cell/intestinal metaplasia or dysplasia identified. POST-OPERATIVE DIAGNOSIS EGD: esophagus ??? mild irregular z line at 35 cm biopsy; gastric ??? antral erythema; TAYLOR test; duodenum ??? ulcer (small) ??? vs erosion; biopsy GROSS DESCRIPTION 1. The specimen is received in formalin labeled, Duodenal Biopsies, and consists of a 0.8 x 0.6 x 0.2 cm aggregate of silva-pink irregular soft tissue fragments which is submitted entirely in one cassette. 2. The specimen is received in formalin labeled, [place] Biopsies, and consists of a 0.7 x 0.5 by up to 0.2 cm aggregate of silva-pink irregular soft tissue fragments which is submitted entirely in one cassette. Signed by and Reported on: Armond Tineo MD 1215 END OF REPORT DEPARTMENT OF PATHOLOGY, [address] [place] [address] Armond Tineo M.D. Director [facility] # [id number] 2 SEE RESULT BELOW Name: LOLA HORN : [address]: Stephanie Gonzalez MD Acct: [id number] Unit: [id number] AGE: 49 Location: ENDO Re08/26/19 SEX: M Status: REG REF SPEC: [id number] SHELLY: 08/26/1919[address]BM [address]: Stephanie Ahuja MD REQ: [id number] RECD: 08/26/19 STATUS: COMP [facility] DR: Rosette Purvis MD _ SOURCE: GAS ANTRUM SPDESC: ORDERED: Clotest Procedure Result Reported Site Clotest Final 08/27/19820 ML Clotest Negative * ML - Main Lab . END OF REPORT DEPARTMENT OF PATHOLOGY, [address] [place] [address] Armond Tineo M.D. Director [facility] # [id number] Procedures Description No Information Available Medical Devices Description No Information Available Encounters Description No Information Available Assessments Date Code Description Provider 08/23/2019 R10.13 Epigastric pain Stephanie Gonzalez MD 08/23/2019 K92.1 Eshaena Stephanie Gonzalez MD 08/23/2019 Z87.11 Personal history of peptic ulcer disease Stephanie Ahuja MD Plan of Treatment No Information Available Functional Status Description No Information Available Mental Status Description No Information Available Referrals Description No Information Available
--- NOTE | 2019-09-15 22:20 | ED ---
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 No rash or fever. The patient rates the pain 0/10 in severity. Symptoms aggravated by nothing. Symptoms alleviated by nothing. States he is unsure if the tick was on his right lower extremity yesterday. He noticed the tick minutes prior to arrival. Patient requesting to have blood work done for HIV testing. - History of Current Complaint Chief Complaint: EDRashSkinAbscess Stated Complaint: TICK IN RT LEG PER PT Time Seen by Provider: 09/15/19 22:13 Hx Obtained From: Patient Onset of Injury: Happened hours ago, Still Present Type of Bite: Wild Animal - tick Severity Currently: None Pain Intensity: 0 Pain Scale Used: 0-10 Numeric Aggravating Factor(s): Nothing Alleviating Factor(s): Nothing Associated Signs And Symptoms: Positive: Negative - rash - Allergies/Home Medications Allergies/Adverse Reactions: Allergies Allergy/AdvReac Type Severity Reaction Status Date / Time No Known Allergies Allergy Verified 09/15/19 22:06 Home Medications: Home Medications Aspirin EC TAB* [Ecotrin EC Low Dose 81 MG*] 81 mg PO DAILY 09/15/19 [History Confirmed 09/15/19] Losartan TAB* [Cozaar TAB*] 50 mg PO DAILY 09/15/19 [History Confirmed 09/15/19] PMH/Surg Hx/FS Hx/Imm Hx Endocrine/Hematology History: Reports: Hx Diabetes - early onset Cardiovascular History: Reports: Hx Angina, Hx Hypercholesterolemia, Hx Hypertension Denies: Hx Coronary Artery Disease, Hx Myocardial Infarction, Hx Valvular Heart Disease Respiratory History: Denies: Hx Asthma, Hx Chronic Obstructive Pulmonary Disease (COPD) Sensory History: Denies: Hx Legally Blind, Hx Deafness Opthamlomology History: Denies: Hx Legally Blind - Surgical History Surgery Procedure, Year, and Place: none Infectious Disease History: No Infectious Disease History: Denies: Traveled Outside the [place] in Last 30 Days - Family History Known Family History: Positive: Hypertension, Diabetes Negative: Cardiac Disease - Social History Alcohol Use: None Hx Substance Use: Yes Substance Use Type: Reports: Marijuana Hx Tobacco Use: Yes Smoking Status (MU): Heavy Every Day Tobacco Smoker Type: Cigarettes, eCigarettes Have You Smoked in the Last Year: Yes Review of Systems Negative: Fever Positive: Other - tick bite on his right lower extremity at the proximal knee. Negative: Rash All Other Systems Reviewed And Are Negative: Yes Physical Exam - Summary Physical Exam Summary: Appearance: Well-appearing, Well-nourished, lying in bed comfortable Skin: Warm, dry, no obvious rash. There was an un-engorged tick attached to the right leg which was removed with forceps without difficulty. Eyes: sclera anicteric, no conjunctival pallor ENT: mucous membranes moist Neck: deferred Respiratory: No signs of respiratory distress Cardiovascular: Appears well perfused, pulses are nml Abdomen: deferred Musculoskeletal: Moving all 4 extremities without obvious discomfort Neurological: Awake and alert, mentation is normal, speech is fluent and appropriate Psychiatric: affect is normal, does not appear anxious or depressed Triage Information Reviewed: Yes Vital Signs On Initial Exam: Initial Vitals Temp Pulse Resp BP Pulse Ox 96.9 F 87 16 121/92 98 09/15/19 22:05 09/15/19 22:05 09/15/19 22:05 09/15/19 22:05 09/15/19 22:05 Vital Signs Reviewed: Yes Procedures - Sedation Patient Received Moderate/Deep Sedation with Procedure: No Diagnostics - Vital Signs Vital Signs Temp Pulse Resp BP Pulse Ox 09/15/19 22:05 96.9 F 87 16 121/92 98 - Laboratory Lab Statement: Any lab studies that have been ordered have been reviewed, and results considered in the medical decision making process. Bite Injury Course/Dx - Course Course Of Treatment: 49 year old M complains of tick bite on his right lower extremity at the proximal knee noticed minutes prior to arrival. No rash or fever. Patient requesting to have blood work done for HIV testing. HIV blood work was ordered and taken. There was an un-engorged tick attached to the right leg which was removed with forceps without difficulty. It did not appear that the tick had been attached very long, so no antibiotic treatment was indicated. Patient will be discharged home with instructions to follow up from his primary care provider. Patient was instructed to return to Emergency Department for new or worsening symptoms. Patient understands and is agreeable to this plan. - Diagnoses Provider Diagnosis: Tick bite Discharge ED - Sign-Out/Discharge Documenting (check all that apply): Patient Departure - Discharge - Discharge Plan Condition: Good Disposition: HOME Patient Education Materials: Tick Bite (ED) Referrals: Rosette Purvis MD [Primary Care Provider] - If Needed Additional Instructions: It doesn't look like the tick had been attached very long, so no antibiotic treatment is indicated. - Billing Disposition and Condition Condition: GOOD Disposition: Home - Attestation Statements Document Initiated by Lauren: Yes Documenting Scribe: Kiera Dominguez Provider For Whom Lauren is Documenting (Include Credential): Trace Martines MD Scribe Attestation: I, Kiera Dominguez, scribed for Trace Martines MD on 09/16/19 at 0203. Scribe Documentation Reviewed: Yes Provider Attestation: The documentation as recorded by the Kiera rothman accurately reflects the service I personally performed and the decisions made by me, Trace Martines MD Status of Scribe Document: Viewed
[2019-09-15 22:31] VITALS: BP 135/89
[2019-09-15 23:44] LABS: HIV 4th Generation Nonreactive (Nonreactive)
== END 2019-09-15 22:25 | disposition home or self-care (01) ==
LOC: ED 21:51
DX: S80.861A Insect bite (nonvenomous), right lower leg, initial encounter (principal); W57.XXXA Bitten or stung by nonvenomous insect and other nonvenomous arthropods, initial encounter; Y92.9 Unspecified place or not applicable; E11.9 Type 2 diabetes mellitus without complications; I10 Essential (primary) hypertension; Z79.82 Long term (current) use of aspirin; F17.210 Nicotine dependence, cigarettes, uncomplicated
CPT/HCPCS: 36415; 87389; 99281

== ENCOUNTER 2019-10-11 20:15 | Emergency (ER) | payer OTHER ==
[2019-10-11 20:43] LABS: ABS Basophils 0.1 10^3/ul (0-0.2); ABS Lymphocytes 2.7 10^3/ul (1.0-4.8); ABS Monocytes 0.6 10^3/ul (0-0.8); ABS Neutrophils 5.2 10^3/ul (1.5-7.7); Eosinophil % 0.1 %; Hematocrit 43 % (42-52); Lymphocyte % 31.5 %; Mean Corpuscular HGB Conc 33 g/dL (31-36); Mean Corpuscular Hemoglobin 21 pg (27-31); Mean Corpuscular Volume 65 fL (80-94); Platelet Count 250 10^3/uL (150-450); Red Blood Count 6.61 10^6 /uL (4.18-5.48); Red Cell Distribution Width 16 % (10-15); White Blood Count 8.5 10^3/uL (3.5-10.8)
[2019-10-11] MEDS ORDERED: PROCHLORPERAZINE INJ 5 MG/ML 2 ML VIAL IV ONE (20:46)
[2019-10-11] MEDS ORDERED: diPHENhydraMINE IV* 50 MG/ML 1 ml VIAL (BENADRYL) IV ONE (20:46)
[2019-10-11] MEDS ORDERED: NS 0.9% 1000 ML** 1,000 ML IV ONE (20:46)
[2019-10-11 20:47] LABS: INR 0.97 (0.82-1.09)
--- NOTE | 2019-10-11 20:49 | ED ---
Headache - HPI Summary HPI Summary: Patient is a 49 y/o M presenting to the ED for headache for the 3 days. Patient is present with his son. Patient states that he has had an intermittent headache that last for several months, with the most recent headache occurring for the last 3 days. He describes the headache as right-sided and states that he sometimes has right-sided facial numbness with the headaches. He states the headache feels like headaches he has had in the past. Patient had a brain MRI in his home country, [place], with unremarkable findings. He denies seeing a neurologist in the past. Patient also has midsternal chest pain with shortness of breath that he describes as a burning sensation. Patient denies vomiting, diaphoresis, bilateral LE swelling, or bilateral LE pain. He had a cardiac stress test at [facility] [place] with unremarkable findings. He denies recent long distance travel. PMHx is significant for hypercholesterolemia. Patient takes aspirin, and took ibuprofen and propranolol for his current symptoms. Patient admits tobacco use and daily alcohol use of 4-5 drinks a day that began 1 year ago, but denies drug use. Medications reviewed. Allergies noted. - History Of Current Complaint Chief Complaint: EDChestPainROMI Stated Complaint: CHEST PAIN PER PT Time Seen by Provider: 10/11/19 20:29 Hx Obtained From: Patient Onset/Duration: Sudden Onset, Still Present Initially Headache Was: Moderate Currently Pain Is: Moderate Timing: Days Location of Headache: Diffuse Aggravating Factor: Nothing Allevating Factors: Nothing Associated Signs And Symptoms: Other (Noted In Comments) - Positive right-sided facial numbness and midsternal chest pain - Allergies/Home Medications Allergies/Adverse Reactions: Allergies Allergy/AdvReac Type Severity Reaction Status Date / Time No Known Allergies Allergy Verified 09/15/19 22:06 PMH/Surg Hx/FS Hx/Imm Hx Previously Healthy: Yes Endocrine/Hematology History: Reports: Hx Diabetes - early onset Cardiovascular History: Reports: Hx Angina, Hx Hypercholesterolemia, Hx Hypertension Denies: Hx Coronary Artery Disease, Hx Myocardial Infarction, Hx Valvular Heart Disease Respiratory History: Denies: Hx Asthma, Hx Chronic Obstructive Pulmonary Disease (COPD) Sensory History: Denies: Hx Legally Blind, Hx Deafness Opthamlomology History: Denies: Hx Legally Blind EENT History: Denies: Hx Deafness - Surgical History Surgical History: None Surgery Procedure, Year, and Place: none Infectious Disease History: No Infectious Disease History: Denies: Traveled Outside the [place] in Last 30 Days - Family History Known Family History: Positive: Hypertension, Diabetes Negative: Cardiac Disease - Social History Occupation: Employed Full-time Lives: With Family Alcohol Use: Daily Alcohol Amount: 4-5 drinks daily Hx Substance Use: Yes Substance Use Type: Reports: Marijuana Hx Tobacco Use: Yes Smoking Status (MU): Heavy Every Day Tobacco Smoker Type: Cigarettes, eCigarettes Have You Smoked in the Last Year: Yes Review of Systems Negative: Skin Diaphoresis Positive: Chest Pain - Midsternal Positive: Shortness Of Breath Negative: Vomiting Negative: Myalgia - Bilateral LE, Edema - Bilateral LE Positive: Headache, Numbness - Right-sided facial numbness All Other Systems Reviewed And Are Negative: Yes Physical Exam - Summary Physical Exam Summary: Constitutional: Well-developed, Well-nourished, Alert. (-) Distressed Skin: Warm, Dry HENT: Normocephalic; Atraumatic Eyes: Conjunctiva normal Neck: Musculoskeletal ROM normal neck. (-) JVD, (-) Stridor, (-) Tracheal deviation Cardio: Rhythm regular, rate normal, Heart sounds normal; Intact distal pulses. Radial pulses are 2+ and symmetric. (-) Murmur. Good pulses bilaterally in radius, No calf tenderness, No venous cords, No pain with dorsiflexion of foot. Pulmonary/Chest wall: Effort normal. (-) Respiratory distress, (-) Wheezes, (-) Rales Abd: Soft. (-) Tenderness, (-) Distension, (-) Guarding, (-) Rebound Musculoskeletal: (-) Edema Lymph: (-) Cervical adenopathy Neuro: Alert, Oriented x3, Strength normal, Cranial nerves II-XII are grossly intact. (-) Dysmetria, (-) Nystagmus, (-) Ataxia by finger to nose testing, (-) Sensory deficit. Psych: Mood and affect Normal Triage Information Reviewed: Yes Vital Signs On Initial Exam: Initial Vitals Temp Pulse Resp BP Pulse Ox 97.8 F 88 16 152/80 100 10/11/19 20:15 10/11/19 20:15 10/11/19 20:15 10/11/19 20:15 10/11/19 20:15 Vital Signs Reviewed: Yes - [place] Coma Scale Best Eye Response: 4 - Spontaneous Best Motor Response: 6 - Obeys Commands Best Verbal Response: 5 - Oriented Coma Scale Total: 15 Procedures - Sedation Patient Received Moderate/Deep Sedation with Procedure: No Diagnostics - Vital Signs Vital Signs Temp Pulse Resp BP Pulse Ox 10/11/19 20:15 97.8 F 88 16 152/80 100 - Laboratory Lab Results: Lab Results 10/11/19 Range/Units 20:34 WBC 8.5 (3.5-10.8) 10^3/uL RBC 6.61 H (4.18-5.48) 10^6 /uL Hgb 14.0 (14.0-18.0) g/dL Hct 43 (42-52) % MCV 65 L (80-94) fL MCH 21 L (27-31) pg MCHC 33 (31-36) g/dL RDW 16 H (10-15) % Plt Count 250 (150-450) 10^3/uL MPV 8.0 (7.4-10.4) fL Neut % (Auto) 61.0 % Lymph % (Auto) 31.5 % [place] % (Auto) 6.5 % Eos % (Auto) 0.1 % Baso % (Auto) 0.9 % Absolute Neuts (auto) 5.2 (1.5-7.7) 10^3/ul Absolute Lymphs (auto) 2.7 (1.0-4.8) 10^3/ul Absolute Monos (auto) 0.6 (0-0.8) 10^3/ul Absolute Eos (auto) 0.0 (0-0.6) 10^3/ul Absolute Basos (auto) 0.1 (0-0.2) 10^3/ul Absolute Nucleated RBC 0.0 10^3/ul Nucleated RBC % 0.0 Result Diagrams: 10/11/19 20:34 10/11/19 20:34 Lab Statement: Any lab studies that have been ordered have been reviewed, and results considered in the medical decision making process. - Radiology Chest X-ray Radiology Interpretation Completed By: ED Physician Summary of Radiographic Findings: Chest X-ray IMPRESSION: no acute process. Reviewed and interpreted by Dr. Cruz. Pending official radiology report. - CT Brain CT CT Interpretation Completed By: Radiologist Summary of CT Findings: Brain CT IMPRESSION: pending. Reviewed by Dr. Cruz. - EKG 20:17 Cardiac Rate: NL - 86 BPM EKG Rhythm: Sinus Rhythm ST Segment: Normal Ectopy: None Summary of EKG Findings: EKG at 20:17 shows 86 BPM with normal sinus rhythm, no STEMI. Reviewed and interpreted by Dr. Cruz. - Additional Comments Diagnostic Additional Comments: Cardiac stress test performed on 12/20/18 shows unremarkable findings. Re-Evaluation - Re-Evaluation First Eval Re-Evaluation Time: 21:39 Change: Unchanged Comment: At 21:39, patient is having a panic attack. Patient wishes to leave. Patient will stay with 0.5 mg of Ativan. Headache Course/Dx - Course Course Of Treatment: Patient is here with 3 days of severe headache. Patient has had frequent headaches over the past year with a negative MRI performed in [place]. Patient is a normal neurologic exam. Patient is given Compazine and Benadryl with cessation of his headache. It is, patient's had 3 days of chest pain. Patient had a negative chest x-ray. Patient had an initial troponin which was negative. Patient is perk negative and has a well score of 0. Patient signed out to Dr. Martines pending second troponin and CT brain results. Patient did have a negative stress test in December and he does not need a repeat stress test. - Diagnoses Provider Diagnoses: Chest pain, Headache Discharge ED - Sign-Out/Discharge Documenting (check all that apply): Sign-Out Patient Signing out patient TO: Trace Martines - Patient will be a sign-out at 22:00 on 10/11/[address] Trace Martines MD from Dr. Amarjit Cruz MD at shift change, pending lab results, Brain CT, further workup and disposition. - Discharge Plan Condition: Stable Patient Education Materials: General Headache (ED) Referrals: Rosette Purvis MD [Primary Care Provider] - Harjit Trent MD [Medical Doctor] - Additional Instructions: Follow up with a neurologist in 1-3 days. Come back if you have weakness on one side of your body, slurred speech, changes in vision, severe chest pain, or any other concerning symptoms. PLEASE RETURN TO EMERGENCY DEPARTMENT FOR ANY NEW OR WORSENING SYMPTOMS. Please follow up with your primary care physician. Please make all follow-ups in 1-3 days unless I advise you otherwise. - Billing Disposition and Condition Condition: STABLE - Attestation Statements Document Initiated by Scribe: Yes Documenting Scribe: Karey Rushing Provider For Whom Lauren is Documenting (Include Credential): Amarjit Cruz MD Scribe Attestation: I, Karey Rushing, scribed for Amarjit Cruz MD on 10/11/19 at 2152. Scribe Documentation Reviewed: Yes Provider Attestation: The documentation as recorded by the Karey rothman accurately reflects the service I personally performed and the decisions made by me, Amarjit Cruz MD Status of Scribe Document: Viewed
[2019-10-11 20:53] LABS: Albumin 4.3 g/dL (3.2-5.2); Calcium 9.6 mg/dL (8.6-10.3); Potassium 3.7 mmol/L (3.5-5.0); Total Bilirubin 0.4 mg/dL (0.2-1.0)
[2019-10-11 20:59] LABS: Albumin/Globulin Ratio 1.2 (1-3); BUN/Creatinine Ratio 13.4 (8-20); EGFR African American 100.4 (>60); Globulin 3.7 g/dL (2-4)
[2019-10-11] MEDS ORDERED: Lorazepam PYXIS KEY PRN (21:45)
[2019-10-11] MEDS ORDERED: LORazepam INJ* 2 MG/ML 1 ML VIAL IV PUSH ONE (21:45)
[2019-10-11] MEDS ORDERED: Lorazepam PYXIS KEY ONE (21:48)
--- NOTE | 2019-10-11 22:01 | ED ---
Progress - Progress Note Progress Note: Pt is a signout from Dr. Cruz pending brain CT results and 2nd troponin. - Results/Orders Results/Orders: Negative noncontrast head CT. ED physician has reviewed this report. Re-Evaluation - Re-Evaluation First Eval Re-Evaluation Time: 21:39 Change: Unchanged Comment: At 21:39, patient is having a panic attack. Patient wishes to leave. Patient will stay with 0.5 mg of Ativan. Course/Dx - Course Course Of Treatment: Pt is a signout from Dr. Cruz pending brain CT results and 2nd troponin. Brain CT shows: Negative noncontrast head CT. 2nd troponin negative. Pt will be d/c'ed. - Diagnoses Provider Diagnoses: Chest pain, Headache Discharge ED - Sign-Out/Discharge Documenting (check all that apply): Patient Departure, Receiving Sign-Out Receiving patient FROM: Amarjit Cruz - Discharge Plan Condition: Stable Disposition: HOME Patient Education Materials: General Headache (ED) Referrals: Harjit Trent MD [Medical Doctor] - Rosette Purvis MD [Primary Care Provider] - Additional Instructions: Follow up with a neurologist in 1-3 days. Come back if you have weakness on one side of your body, slurred speech, changes in vision, severe chest pain, or any other concerning symptoms. PLEASE RETURN TO EMERGENCY DEPARTMENT FOR ANY NEW OR WORSENING SYMPTOMS. Please follow up with your primary care physician. Please make all follow-ups in 1-3 days unless I advise you otherwise. - Billing Disposition and Condition Condition: STABLE Disposition: Home - Attestation Statements Document Initiated by Lauren: Yes Documenting Scribe: Purvi Spivey Provider For Whom Lauren is Documenting (Include Credential): Trace Martines MD. Scribe Attestation: Purvi Devries, scribed for Trace Martines MD. on 10/12/19 at 0155. Scribe Documentation Reviewed: Yes Provider Attestation: The documentation as recorded by the Purvi rothman accurately reflects the service I personally performed and the decisions made by me, Trace Martines MD. Status of Scribe Document: Viewed
[2019-10-12 01:16] VITALS: BP 140/84
== END 2019-10-12 01:12 | disposition home or self-care (01) ==
LOC: ED 20:15
DX: R51 Headache (principal); R07.9 Chest pain, unspecified; E11.9 Type 2 diabetes mellitus without complications; E78.00 Pure hypercholesterolemia, unspecified; I10 Essential (primary) hypertension; F17.210 Nicotine dependence, cigarettes, uncomplicated
CPT/HCPCS: 36415; 70450; 71045; 80053; 84484; 85025; 85610; 93005; 96361; 96374; 96375; 99283; J0780; J1200; J2060

== ENCOUNTER 2021-10-02 18:55 | Observation (INO) ==
[2021-10-02 20:07] LABS: Albumin 3.8 g/dL (3.2-5.2); Anion Gap 12 mmol/L (2-11); CO2 Carbon Dioxide 23 mmol/L (22-32); Calcium 8.4 mg/dL (8.6-10.3); Chloride 102 mmol/L (101-111); Potassium 4.1 mmol/L (3.5-5.0); Sodium 137 mmol/L (135-145)
[2021-10-02 20:11] LABS: INR 1.01 (0.86-1.15)
[2021-10-02 20:13] LABS: ALT 52 U/L (7-52); AST 40 U/L (13-39); Albumin/Globulin Ratio 1.2 (1-3); Alkaline Phosphatase 155 U/L (35-149); Blood Urea Nitrogen 11 mg/dL (6-24); Globulin 3.1 g/dL (2-4); Glucose 194 mg/dL (70-100); Total Protein 6.9 g/dL (6.4-8.9)
[2021-10-02 20:15] LABS: Troponin I 0.07 ng/mL (<0.03)
[2021-10-02 20:24] LABS: ABS Basophils 0.1 10^3/ul (0-0.2); ABS Lymphocytes 2.8 10^3/ul (1.0-4.8); ABS Monocytes 0.7 10^3/ul (0-0.8); Hematocrit 35 % (42-52); Hemoglobin 11.5 g/dL (14.0-18.0); Lymphocyte % 29.1 %; Mean Corpuscular HGB Conc 32 g/dL (31-36); Mean Corpuscular Hemoglobin 24 pg (27-31); Mean Corpuscular Volume 73 fL (80-94); Mean Platelet Volume 8.1 fL (7.4-10.4); Nucleated Red Blood Cells % 0.1; Platelet Count 372 10^3/uL (150-450); Red Blood Count 4.85 10^6 /uL (4.18-5.48); Red Cell Distribution Width 17 % (10-15); White Blood Count 9.6 10^3/uL (3.5-10.8)
[2021-10-02 23:04] LABS: Rapid COVID-19 Molecular Undetected (Undetected)
[2021-10-02 23:08] LABS: Ammonia 35 mcmol/L (16-53)
[2021-10-02 23:12] LABS: BNP 101 pg/mL (<=100)
[2021-10-02] MEDS ORDERED: Furosemide 40 mg/4 ml IV VIAL IV ONE (23:22)
[2021-10-02 23:27] LABS: Urine Benzodiazepine Screen None Detected (None Detect); Urine Cannabinoids Screen Presumptive Positive (None Detect); Urine Opiates Screen None Detected (None Detect)
[2021-10-02 23:40] LABS: Magnesium 1.1 mg/dL (1.9-2.7)
[2021-10-02 23:54] LABS: Troponin I 0.01 ng/mL (<0.03)
[2021-10-03] MEDS ORDERED: Magnesium Sulfate IV 3 GM in NS 0.9% 100 ml BAG 100 ML IVPB ONE (01:00)
[2021-10-03] MEDS ORDERED: Ondansetron 4 mg VIAL 2 MG/ML 2 ml VIAL IV PRN (01:56)
[2021-10-03] MEDS ORDERED: Al Hydrox/Mg Hydrox/Simet LIQ 30 ML UDC PO PRN (01:56)
[2021-10-03] MEDS ORDERED: Enoxaparin 40 MG/0.4 ML SYR SUBCUT SCH ×2 (02:00→02:45)
[2021-10-03] MEDS ORDERED: NS 0.9% 100 ml BAG 100 ML ONE (02:05)
[2021-10-03] MEDS ORDERED: Enoxaparin 40 MG/0.4 ML SYR ONE (02:21)
[2021-10-03] MEDS ORDERED: Thiamine 100 MG/ML 2 ml VIAL (200 mg) IM ONE (02:27)
[2021-10-03 06:51] LABS: Troponin I 0.01 ng/mL (<0.03)
[2021-10-03] MEDS ORDERED: Regadenoson 0.4 MG/5 ML SYRINGE ONE (08:50)
[2021-10-03] MEDS ORDERED: Multivitamins/Minerals TAB PO SCH (09:00)
[2021-10-03 09:12] VITALS: BP 125/81
[2021-10-03] MEDS: CMCS:Budesonide 3 mg CAP (NF) PO SCH ×2 (09:19→15:34)
[2021-10-03 14:48] LABS: HDL Cholesterol 81.2 mg/dL; Magnesium 2.1 mg/dL (1.9-2.7)
[2021-10-03] MEDS ORDERED: LORazepam 2 mg VIAL 1 ml IV PUSH ONE (14:59)
[2021-10-03] MEDS ORDERED: Lorazepam PYXIS KEY PRN (14:59)
[2021-10-03] MEDS ORDERED: Latanoprost 0.005% 2.5 ml BTL BOTH EYES SCH (21:00)
== END 2021-10-03 16:24 | disposition home or self-care (01) ==
LOC: MEDTELE 18:55 → ED 18:55 → SUATTDRO 10-03 01:56 → MEDTELE 10-03 06:41
PROVIDERS: ADMIT Hospitalist; ATTEND Student in an Organized Health Care Education/Training Program